=== PATIENT | male | born 1975 | race Caucasian/White ===

== ENCOUNTER → 2017-05-26 | Day surgery (SDC) | payer OTHER ==
[2017-05-13 14:45] VITALS: BMI 41.0
--- NOTE | 2017-05-13 15:09 | PAT Medication Instructions ---
Service Date May 13, 2017. Current Home Medication List Ascorbic Acid (Vitamin C), 1,000 MG PO QAM Cinnamon (Cinnamon), 500 MG PO QAM Fenofibrate (Tricor), 67 MG PO QAM Glipizide (Glipizide Er), 20 MG PO QAM Lisinopril (Zestril), 2.5 MG PO QAM Loratadine (Claritin), 10 MG PO PRN Metformin Hcl (Glucophage Ext Rel), 1,000 MG PO BID Omeprazole (Prilosec), 20 MG PO PRN Medication Instructions For Your Scheduled Surgery - Hold the following medications starting 05/14/17: Cinnamon (Cinnamon), 500 MG PO QAM - Hold the following medications 48 hours prior to surgery: Metformin Hcl (Glucophage Ext Rel), 1,000 MG PO BID - Hold the following medications the morning of surgery: Loratadine (Claritin), 10 MG PO PRN Lisinopril (Zestril), 2.5 MG PO QAM Glipizide (Glipizide Er), 20 MG PO QAM Fenofibrate (Tricor), 67 MG PO QAM Ascorbic Acid (Vitamin C), 1,000 MG PO QAM - Take the following medications the morning of surgery with a sip of water: Omeprazole (Prilosec), 20 MG PO PRN (if needed) - Take the following medications as scheduled the night before surgery: Omeprazole (Prilosec), 20 MG PO PRN (if needed) Loratadine (Claritin), 10 MG PO PRN (if needed) If you have any questions please call us at [phone] or [phone] or [phone]
[2017-05-13 16:31] LABS: BUN/CREATININE RATIO 10.7 (10-20); CALCIUM 8.9 mg/dl (8.5-10.1); CREATININE 1.3 mg/dl (0.60-1.40); POTASSIUM 4.2 mmol/L (3.5-5.1)
[2017-05-13 16:48] LABS: BETA-HYDROXYBUTYRATE 1.26 mg/dL (0.2-2.81)
[~2017-05-26] VITALS: Ht 190.5 cm; Wt 151.2 kg
[~2017-05-26] MED LIST: ALBUTEROL HFA INHALER 8.5 GM INH ONE; ASCO10003 PO; ATROPINE SULFATE 0.1 MG/ML 5ML SYR IV PRN; BUPIVACAINE 0.5 % 5 MG/1 ML MPF 30ML VIAL ONE; CEFAZOLIN 3000 MG/65 ML D5W IV SCH; CEFAZOLIN SOD 1 GM VIAL ONE; CINN1CAP2 PO; CLR10 PO; CONRAY 60% 50 ML VIAL ONE; DEXAMETHASONE SOD INJ 4 MG/ML VIAL ONE; EpHEDrine SULFATE INJ 50 MG/ML AMP IV PRN; FENO67CA2 PO; FENTANYL CITRATE INJ 50 MCG/1 ML 2 ML VIAL ONE; GLIP-199 PO; GLYCOPYRROLATE INJ 0.2 MG/ML VIAL ONE; HEPARIN SOD (PORCINE) 1000 UNIT/ML 10 ML VIAL ONE; LACTATED RINGER'S 1000ML 1,000 ML IV SCH; LIDOCAINE HCL 2% 2 ML VIAL (20MG/ML) ONE; LISI-729 PO; METF1TAB53 PO; MIDAZOLAM HCL 1 MG/ML 2ML VIAL ONE; MoRPHine SULFATE 4 MG/ML 1 ML CARP\\VIAL IV PRN; NEOSTIGMINE METHYLSULFATE 5 MG/5 ML SYR ONE; NURSING VERBAL MED ORDER ONE; NovoLIN-R INSULIN PER UNIT CHARGE ONE; ONDANSETRON INJ 2 MG/ML 2 ML VIAL IV PRN; ONDANSETRON INJ 2 MG/ML 2 ML VIAL ONE; OXYCODONE/ACETAMINOPHEN 5-325 TAB PO PRN; PHENYLEPHRINE 100MCG/ML 5ML SYR ONE; PRLSR20 PO; PROPOFOL IV EMULSION 10 MG/ML 20 ML VIAL IV ONE; ROCURONIUM BROMIDE 10 MG/ML 5 ML VIAL ONE; SODIUM CHLORIDE 0.9% 1000ML 1,000 ML IV SCH; SUCCINYLCHOLINE CHLORIDE 20 MG/ML 10 ML VIAL IV ONE
[2017-05-26 05:30] VITALS: BP 123/82; PULSE 95; TEMP 36.6; O2SAT 97; Ht 190.5 cm; Wt 151.2 kg
--- NOTE | 2017-05-26 07:03 | History & Physical Bridge Note ---
H&P Re-Evaluation Bridge Note: I have examined the patient, reviewed the History & Physical and in the interval since the performance of the History & Physical I have noted the following changes of clinical significance: No changes noted
--- NOTE | 2017-05-26 08:52 | [facility] Post Operative Brief Note ---
Immediate Operative Summary Operative Date May 26, 2017. Pre-Operative Diagnosis Dysfunctional Gallbladder Post-Operative Diagnosis Same as preoperative Procedure(s) Performed Laparoscopic Cholecystectomy Surgeon Dr. Tony Germain Private Branch Exchange Operator Surgeon(s) Lydia Kwok PA-C Estimated Blood Loss 15ml Findings See dictation Specimens A.) Gallbaldder and contents Drains None Anesthesia General Complication(s) None Disposition Recovery Room / PACU
--- NOTE | 2017-05-26 09:02 | [facility] Operative Report ---
Operative Report Operative Date May 26, 2017. Pre-Operative Diagnosis Dysfunctional Gallbladder Post-Operative Diagnosis Same Procedure(s) Performed Laparoscopic cholecystectomy Surgeon Dr. Tony Germain Private Duty Lpn Surgeon(s) Lydia Kwok PA-C Estimated Blood Loss 15ml Findings The gallbladder was not dilated. The cystic duct was not dilated in fact it was small in diameter than average. The liver was firm and the surface was nodular. The medial segment of the left lobe was generous and covered the gallbladder. There was a significant intrahepatic component to the gallbladder. The visible bowel appeared normal. There were no stones identified within the lumen of the gallbladder. The omentum was adhesed to the anterior abdominal wall to the right of the falciform ligament. Specimens A.) Gallbaldder and contents Drains None Anesthesia General Complication(s) None Disposition Recovery Room / PACU Description of Procedure The patient was placed on the operating table. He was given general anesthetic and the area was prepped and draped in the usual sterile fashion. Infraumbilical incision was made. It was carried down through the subcutaneous tissue to the fascia which was grasped with 2 Nayely clamps and incised between. The peritoneum was identified incised and the introducer was placed bluntly. The abdomen was then insufflated to a pressure of 15 mmHg with carbon dioxide. The upper midline, midclavicular and anterior axillary introducers were placed under direct vision through small skin incisions. The adhesions of the omentum to the anterior abdominal wall were taken down using sharp and blunt dissection where appropriate. I then attempted to expose the gallbladder. Traction was placed superolaterally however the floppy medial segment of the left lobe without allowing me to see the infundibulum and the area of the cystic duct and cystic artery. For that reason I placed another 5 mm port between the upper midline and midclavicular ports. That allowed me to use an instrument to retract the medial segment of the left lobe. I then was able to begin dissection of the infundibulum. There was a lot of thickened peritoneum and fat over the infundibulum and over the lateral portion of the body. I was eventually able to identify the inferior aspect of the infundibulum and opened the peritoneum and dissected laterally up along the lateral aspect of the infundibulum that away from the liver. Then performed a similar dissection anteriorly. It required careful meticulous dissection as there was a lot of thickened tissue but once I got below the thickened tissue the fat below that was a little more normal consistency and pulled down towards the common bile duct. I then performed a similar dissection within the triangle as well as the medial aspect of the gallbladder away from the liver there. That allowed me to identify the feeding lymphatics to the cystic duct lymph node and these were clamped and divided which allowed even better mobility and allowed me to identify the cystic duct. The cystic duct was then cleaned on the medial anterior lateral patel. I was then able to establish a plane behind confirm the cystic duct gallbladder junction. 2 clips were placed in the proximal cystic duct one to the gallbladder and the cystic duct was divided. I elevated that identified the cystic artery. That was isolated and clipped twice proximally once to the gallbladder and divided. The gallbladder was then dissected off the liver bed and in doing so I encountered another tubular structure in the inferior aspect of the body that was either a posterior branch of the artery or a large lymphatic. That was clamped and divided. The gallbladder was then successfully removed from the liver. Gallbladder was placed into an Endobag and brought out through the upper midline incision. That introducer was replaced and the liver edge was elevated. The subdiaphragmatic and subhepatic spaces were irrigated and the irrigation was removed. That was repeated until the return was clear. The gallbladder bed of the liver was inspected and there was no bleeding. The clips were inspected and were intact. The gas was allowed to escape and removed using suction. The introducers were removed and the fascia of the umbilical and upper midline introducer sites was closed with interrupted 0 Vicryl. The skin of all the incisions was then closed with 4-0 Monocryl in either interrupted or running subcuticular fashion. The skin was anesthetized with 0.5% Marcaine. The skin was cleansed dry benzoin placed and Steri-Strips applied. Estimated blood loss was 15 mL. Sponge needle and instrument counts were correct prior to closure. The patient tolerated the surgical procedure without complication was transferred to recovery. I attest to the content of the Intraoperative Record and any orders documented therein. Any exceptions are noted below.
--- NOTE | 2017-05-26 09:05 | Discharge Instructions ---
Discharge Instructions Date of Service May 26, 2017. Admission Reason for Admission: Dysfunctional Gallbladder Discharge Discharge Diagnosis / Problem: Same Discharge Goals Goal(s): Decrease discomfort Activity Recommendations Activity Limitations: per Instructions/Follow-up section Lifting Limitations: no more than 10 pounds (for 2 weeks) Shower/Bathe: tomorrow (Shower only) . Instructions / Follow-Up Instructions / Follow-Up Post-Surgical ~ Discharge Instructions Activity Recommendations: - lifting limitation: (10 pounds for 2 weeks), - exercise/sex/sports limit: (nonstrenuous for 2 weeks), - driving or machine use limit: (none for 1 week), - Shower/bathe limit: (may shower beginning tomorrow) Diet: - Resume previous diet SPECIAL CARE INSTRUCTIONS: - May shower in 24 hours. Let water run over area and pat dry. - Leave steri strips on for one week. - Call the surgeon's office with any questions or concerns - - (ex. temperature higher than 101 degrees F, excessive bleeding or pain). MEDICATIONS: - Resume previous medications unless instructed otherwise by your surgeon. - Ibuprofen 600 mg every 6 hours with food - Percocet 1 every 4 hours, as needed for pain FOLLOW UP VISIT: - If not already scheduled, please call the office to schedule a two week follow-up appointment. Office number Current Hospital Diet Patient's current hospital diet: Discharge Diet Recommended Diet: Diabetes Type 2 Diet Procedures Procedures Performed: Laparoscopic Cholecystectomy Pending Studies Studies pending at discharge: no Medical Emergencies . Who to Call and When: Medical Emergencies: If at any time you feel your situation is an emergency, please call 911 immediately. . Non-Emergent Contact Non-Emergency issues call your: Primary Care Provider, Surgeon Call Non-Emergent contact if: your pain is worsening, wound has increased redness, wound has increased pain . "Provider Documentation" section prepared by Tony Germain. . VTE Core Measure Inpt VTE Proph given/why not?: Treatment not indicated
[2017-05-26] MEDS: FENTANYL CITRATE INJ 50 MCG/1 ML 2 ML VIAL IV PRN ×4 (09:30→09:56)
--- NOTE | 2017-05-26 10:30 | Anesthesiology Progress Note ---
Anesthesia Post Op Note Date & Time May 26, 2017 at 10:29 Vital Signs Pain Intensity: 4 Vital Signs Past 12 Hours Date Time Temp Pulse Resp B/P (MAP) Pulse Ox O2 Delivery O2 Flow Rate FiO2 05/26/17 10:25 36.6 98 18 110/81 92 Nasal Cannula 2 05/26/17 10:15 36.6 99 18 108/84 92 Nasal Cannula 2 05/26/17 10:05 98 18 119/83 90 Nasal Cannula 2 05/26/17 09:55 98 20 129/82 91 Nasal Cannula 2 05/26/17 09:45 102 20 130/83 91 Nasal Cannula 2 05/26/17 09:35 95 20 124/82 96 Oxymask 10 05/26/17 09:25 99 20 121/81 97 Oxymask 10 05/26/17 09:16 36.8 102 20 125/91 95 Oxymask 10 05/26/17 05:30 36.6 95 20 123/82 (96) 97 Room Air Notes Mental Status: alert / awake / arousable, participated in evaluation Pt Amnestic to Procedure: Yes Nausea / Vomiting: adequately controlled Pain: adequately controlled Airway Patency, RR, SpO2: stable & adequate BP & HR: stable & adequate Hydration State: stable & adequate Anesthetic Complications: no major complications apparent
[2017-05-26 10:35] VITALS: BP 131/77; PULSE 97; TEMP 36.6; O2SAT 95
[2017-05-26 11:05] VITALS: BP 119/72; PULSE 99; TEMP 36.8; O2SAT 96
[2017-05-26 11:35] VITALS: BP 106/67; PULSE 100; O2SAT 93
== END | disposition home or self-care (01) ==
LOC: C.ACU 05:14
PROVIDERS: ATTEND Surgery
DX: K80.10 Calculus of gallbladder with chronic cholecystitis without obstruction (principal); E11.9 Type 2 diabetes mellitus without complications; E78.5 Hyperlipidemia, unspecified; G47.33 Obstructive sleep apnea (adult) (pediatric); Z98.52 Vasectomy status; E66.01 Morbid (severe) obesity due to excess calories; Z68.41 Body mass index [BMI] 40.0-44.9, adult; Z98.42 Cataract extraction status, left eye; Z98.818 Other dental procedure status